=== PATIENT | male | born 1955 | race Caucasian/White ===

== ENCOUNTER 2018-08-29 09:06 | Inpatient (IN) | payer OTHER ==
[2018-08-29] MEDS ORDERED: BUPIVACAINE/EPI 0.5% 30 ML SDV ONE (09:27)
[2018-08-29] MEDS ORDERED: THROMBIN (BOVINE) 5,000 UNIT VIAL TP ONE (09:28)
[2018-08-29] MEDS ORDERED: LR 1,000 ML IV ONE (09:42)
[2018-08-29] MEDS ORDERED: PROPOFOL/EMULSION 500 MG/50 ML BOTTLE IV ONE ×2 (10:09→11:51)
[2018-08-29] MEDS ORDERED: fentaNYL 250 MCG/5 ML INJ ONE (10:09)
[2018-08-29] MEDS ORDERED: Propylene Glycol/Peg 400 [Systane Gel Eye Drops] 1 DROP EACHEYE PRN (10:21)
[2018-08-29] MEDS ORDERED: NAPROXEN SODIUM 220 MG TAB PO PRN (10:21)
--- NOTE | 2018-08-29 10:21 | PDHPUP ---
History & Physical Update H&P update statement: This history and physical update is based on an assessment of the patient which was completed after admission or registration (within 24 hours), but prior to the surgery/procedure. H&P update: H&P reviewed & patient examined, no change in patient's condition since H&P completed
[2018-08-29 10:26] LABS: PLATELET COUNT 270 10^3/uL (150-400)
--- NOTE | 2018-08-29 11:15 | PDANEPAE ---
ANE History of Present Illness 63 year old male for left CEA. 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 History of hypertension. ANE Past Medical History - Cardiovascular History Hx Hypertension: Yes Hx Arrhythmias: No Hx Chest Pain: No Hx Coronary Artery / Peripheral Vascular Disease: No Hx CHF / Valvular Disease: No Hx Palpitations: No Cardiovascular History Comment: pcp monitors bp medications - Pulmonary History Hx COPD: No Hx Asthma/Reactive Airway Disease: No Hx Recent Upper Respiratory Infection: No Hx Oxygen in Use at Home: No Hx Sleep Apnea: No Sleep Apnea Screening Result - Last Documented: Positive Pulmonary History Comment: NENA triggers - Neurologic History Hx Cerebrovascular Accident: No Hx Seizures: No Hx Dementia: No Neurologic History Comment: 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 left knee surgery ANE Review of Systems Review of systems is: negative Review of Systems: - Exercise capacity METS (RN): 4 METS ANE Patient History - Allergies Allergies/Adverse Reactions: No Known Allergies Allergy (Verified 08/27/18 10:52) - Home Medications Home Medications: Aspirin [Aspirin 325 mg (*)] 325 mg PO DAILY 08/26/18 [Last Taken 08/27/18] Herbals/Supplements -Info Only 1 ea PO DAILY 08/26/18 [Last Taken 08/27/18] Lisinopril/Hctz 20/12.5MG [Zestoretic/Prinzide 20/12.5MG (*)] 1 ea PO DAILY [Last Taken 1 Day Ago ~08/28/18] Mineral Oil/Petrolatum,White [Systane Nighttime Eye Oint] 1 gm EACHEYE HS [Last Taken 08/29/18] Naproxen Sodium [Aleve 220 MG (*)] 220 mg PO DAILY PRN 08/26/18 [Last Taken ] [place]-3 Fatty Acids [Fish Oil 1000 mg (*)] 1,000 mg PO BID 08/26/18 [Last Taken 08/27/18] Propylene Glycol/Peg 400 [Systane Gel Eye Drops] 1 drop EACHEYE QID PRN [Last Taken 08/29/18] amLODIPine BESYLATE [Norvasc 10 mg (*)] 10 mg PO DAILY 08/26/18 [Last Taken ] cycloSPORINE 0.05% [Restasis Opht Drops(*)] 1 drop EACHEYE BID 08/26/18 [Last Taken 08/29/18] - NPO status NPO Since - Liquids (Date): 08/29/18 NPO Since - Liquids (Time): 06:30 NPO Since - Solids (Date): 08/28/18 NPO Since - Solids (Time): 21:00 - Smoking Hx Smoking Status: Former smoker - Family Anes Hx Family Hx Anesthesia Complications: none ANE Labs/Vital Signs - Labs Result Diagrams: 08/29/18 10:00 08/29/18 10:00 - Vital Signs Height: 175.26 cm Weight: 86.183 kg ANE Physical Exam - Airway Neck exam: FROM Mallampati Score: Class 2 Mouth exam: normal dental/mouth exam - Pulmonary Pulmonary: no respiratory distress - Cardiovascular Cardiovascular: regular rate and rhythym - ASA Status ASA Status: III ANE Anesthesia Plan Anesthesia Plan: general endotracheal anesthesia
[2018-08-29] MEDS ORDERED: LABETALOL HCL 5 MG/ML 20 ML MDV IVP PRN (12:25)
[2018-08-29] MEDS ORDERED: ONDANSETRON 4 MG/2 ML VIAL IVP PRN ×2 (12:25→12:56)
[2018-08-29] MEDS ORDERED: PHENYLEPHRINE HCL 100 MCG/ML SYR IVP PRN (12:25)
[2018-08-29] MEDS ORDERED: fentaNYL 100 MCG/2 ML INJ IVP PRN (12:25)
[2018-08-29] MEDS ORDERED: oxyCODONE IR 5 MG TAB PO PRN (12:25)
[2018-08-29] MEDS ORDERED: DEXAMETHASONE 4 MG/ML VIAL IVP PRN (12:25)
[2018-08-29] MEDS ORDERED: LR 500 ML IV PRN (12:25)
[2018-08-29] MEDS ORDERED: HYDROmorphONE/DILAUDID 1 MG/ML INJ IVP PRN (12:25)
[2018-08-29] MEDS ORDERED: PROMETHAZINE HCL 25 MG/ML INJ IVP PRN (12:25)
[2018-08-29] MEDS ORDERED: NALOXONE HCL 0.4 MG/ML INJ IVP PRN (12:25)
[2018-08-29] MEDS ORDERED: ZOLPIDEM TARTRATE 5 MG TAB PO PRN (12:56)
[2018-08-29] MEDS ORDERED: HYDROCODONE/APAP 5/325 TAB PO PRN (12:56)
--- NOTE | 2018-08-29 12:56 | POSTOPPROG ---
Post Op Note Date of Operation: 08/29/18 Surgeon: Yuval Shankar Application Programmer Analyst: Jim Ceballos Anesthesiologist: Misty Schaefer Anesthesia: GET(General Endotracheal) Pre-op Diagnosis: Symptomatic left carotid stenosis Post-op Diagnosis: Same Procedure: Left eversion carotid endarterectomy Findings: Liquifying, friable, cheesy plaque Inf/Abcess present in the surg proc area at time of surgery?: No EBL: Minimal Complications: no immediate Specimen(s): plaque
--- NOTE | 2018-08-29 13:07 | POSTANESTH ---
Post Anesthetic Evaluation Cardiovascular Status: Normal, Stable Respiratory Status: Normal, Stable Level of Consciousness/Mental Status: Can Participate in Eval Pain Control: Adequate, Prn Tx Ordered Nausea/Vomiting Control: Adequate, Prn Tx Ordered Complications Possibly Related to Anesthesia: None Noted
--- NOTE | 2018-08-29 13:34 | GOP ---
[f rep st] OPERATIVE REPORT DATE OF OPERATION: 08/29/2018 SURGEON: Yuval Shankar MD OIL WELL CABLE TOOL DRILLER: Jim Ceballos MD ANESTHESIA: General. ANESTHESIOLOGIST: Misty Schaefer MD PREOPERATIVE DIAGNOSIS: Symptomatic left carotid stenosis. POSTOPERATIVE DIAGNOSIS: Symptomatic left carotid stenosis. PROCEDURE PERFORMED: Left eversion carotid endarterectomy. FINDINGS: See below. INDICATIONS: 63-year-old male with symptomatic left high-grade carotid stenosis. He is undergoing a carotid endarterectomy at this time. Risks and benefits were explained to him of bleeding, infection, nerve injury, stroke, recurrent stenosis, untoward cardiovascular effects, as well as others. All questions were answered. He desires to proceed. DESCRIPTION OF PROCEDURE: General anesthesia was induced. The carotid bifurcation was identified using ultrasonography sitting low within the neck. Local anesthetic was infiltrated along the anterior border of the sternocleidomastoid muscle. A transverse incision was created within skin lines. The platysma muscle was divided. The posterior auricular nerve was identified and preserved. The anterior border of the sternocleidomastoid muscle was dissected out. The facial vein was circumferentially encompassed and divided between clamps and ties. The carotid bifurcation was dissected out. Vessel loops were passed around the common, internal, and external carotid arteries. There was a very focal hard atheromatous plaque noted at the level of the bulb. The common carotid artery appeared soft and smooth, as was the distal internal carotid artery. A loop was passed around the superior thyroid artery as well. Heparin bolus was administered. Occluding clamps were applied. The artery was further dissected preserving the vagus nerve, as well as the hypoglossal nerve. An arteriotomy was created through the bulb of the artery. Using Butler scissors, the internal carotid artery was transected away from the common carotid artery. An eversion endarterectomy was completed, allowing for a nice smooth tapering endpoint. All loose fronds were individually retrieved. Backbleeding showed excellent flow coming from the intracranial circulation. The endarterectomy was completed through the external , as well as the common carotid arteries. The internal carotid artery was reattached to the common carotid artery with 2 competing 6-0 Prolene sutures. The artery was fore-bled and back-bled prior to and opened through the external carotid artery prior to reestablishing intracranial circulation through the internal. Excellent hemostasis was noted. Doppler interrogation disclosed nonobstructive signals throughout the common and internal carotid systems. The neck was closed in layers with absorbable sutures followed by Dermabond. The patient was extubated in the operating room, moving all 4 extremities, and taken to recovery uneventfully. /[id number]/MODL MTDD
--- NOTE | 2018-08-29 14:07 | PDMN ---
Medical Necessity Medical necessity: Pt meets inpt criteria per MD order and [facility] S-300, Carotid Endarterectomy, MCR IP only list, 63 y/o w/symptomatic 90% stenosis of L ICA w/ unstable plaque admitted for L eversion CEA and post-op care. PMHx includes HTN , HLD, and former smoker.
[2018-08-29] MEDS: ACETAMINOPHEN 325 MG TAB PO PRN ×2 (14:50→22:29)
[2018-08-29] MEDS: KETOROLAC 15 MG/1 ML SDV IVP SCH ×2 (18:40→23:57)
[2018-08-29] MEDS ORDERED: PETROLATUM EACHEYE SCH (21:00)
[2018-08-29] MEDS ORDERED: MINERAL OIL EACHEYE SCH (21:00)
[2018-08-29] MEDS ORDERED: cycloSPORINE 0.05% 30 DROPERETTE/BOX EACHEYE SCH (21:00)
[2018-08-29] MEDS ORDERED: [UNRECOGNIZED DRUG - OTHER] EACHEYE SCH (21:00)
--- NOTE | 2018-08-29 22:07 | SOAPPROG ---
SOAP Progress Note Assessment/Plan: Assessment:post op check. doing well. no pain. numbness throughout neck and ear. afebrile. bp 140-160. comfortable, up in chair. neck soft, flat. neuro intact other than MMN paresis. no issues. anticipated DC in am. Plan: 08/29/18 22:05 Objective: Vital Signs Temp Pulse Resp BP Pulse Ox 36.3 C 101 H 16 143/89 H 91 L 08/29/18 19:05 08/29/18 19:05 08/29/18 19:05 08/29/18 19:05 08/29/18 19:05 Laboratory Results 08/29/18 10:00 08/29/18 10:00 08/28/18 08/29/18 08/30/18 05:59 05:59 05:59 Intake Total 2100 Output Total 203 Balance 1897 ICD10 Worksheet Patient Problems: Problems Problem Status Onset Carotid stenosis, left Acute - ICD10 Problem Qualifiers (1) Carotid stenosis, left
[2018-08-29] MEDS: OMEGA-3 FATTY ACIDS 1,000 MG CAP PO SCH ×2 (22:11→22:12)
[2018-08-30 05:30] VITALS: BP 160/98
[2018-08-30] MEDS: KETOROLAC 15 MG/1 ML SDV IVP SCH (05:34)
[2018-08-30] MEDS ORDERED: LISINOPRIL/HCTZ 20/12.5MG 1 EA TAB ONE (05:52)
[2018-08-30] MEDS ORDERED: ASPIRIN 325 MG TAB ONE (05:52)
[2018-08-30] MEDS: OMEGA-3 FATTY ACIDS 1,000 MG CAP PO SCH (05:54)
--- NOTE | 2018-08-30 06:54 | SOAPPROG ---
SOAP Progress Note Assessment/Plan: Assessment:no c/o. no pain. no neuro concerns. no cp or sob. ready to go home ! numbness throughout neck and ear resolved. afebrile. bp 160/09 (prior to am bp meds). comfortable, up in chair. neck soft, min induration. neuro intact - resolved MMN paresis. no issues. home today am. dc instructions explained. Plan: 08/29/18 22:05 08/30/18 06:52 Objective: Vital Signs Temp Pulse Resp BP Pulse Ox 36.6 C 89 16 160/98 H 91 L 08/30/18 04:00 08/30/18 04:00 08/30/18 04:00 08/30/18 04:00 08/30/18 04:00 Laboratory Results 08/29/18 10:00 08/29/18 10:00 08/29/18 08/30/18 08/31/18 05:59 05:59 05:59 Intake Total 2100 Output Total 203 Balance 1897 ICD10 Worksheet Patient Problems: Problems Problem Status Onset Carotid stenosis, left Acute - ICD10 Problem Qualifiers (1) Carotid stenosis, left
--- NOTE | 2018-08-30 07:01 | GDS ---
[f rep st] DISCHARGE SUMMARY REASON FOR ADMISSION: Symptomatic left carotid stenosis. HOSPITAL COURSE: 63-year-old male with symptomatic left carotid stenosis. He underwent an uncomplicated left carotid endarterectomy. He had a benign postoperative course. He was discharged home the following morning in excellent condition, neurologically intact. Postoperative blood pressure was consistent with his prior numbers ranging from 130s to 160s. He was actively working with his primary care team to this end prior to admission. He was given prescriptions for [place] as needed for discomfort. He was recommended to use Tylenol or ibuprofen preferentially. He will be seen in followup by Dr. Shankar in 1-2 weeks. Full activity instructions were explained prior to leaving. He was to resume all other pre-hospital medications. Copy requested to: Ronnell Toscano MD /[id number]/MODL MTDD
[2018-08-30] MEDS ORDERED: ASPIRIN 325 MG TAB PO SCH (09:00)
[2018-08-30] MEDS ORDERED: LISINOPRIL/HCTZ 20/12.5MG 1 EA TAB PO SCH (09:00)
== END 2018-08-30 08:27 | disposition home or self-care (01) | DRG 39 ==
LOC: F3N 09:06 → F3E 14:02
PROVIDERS: ADMIT Surgery; ATTEND Surgery
PROC: 03CJ0ZZ Extirpation of Matter from Left Common Carotid Artery, Open Approach (ICD-10-PCS; principal; 2018-08-29 10:45)
DX: I65.22 Occlusion and stenosis of left carotid artery (principal); I10 Essential (primary) hypertension; G47.33 Obstructive sleep apnea (adult) (pediatric); E78.5 Hyperlipidemia, unspecified; Z85.828 Personal history of other malignant neoplasm of skin
CPT/HCPCS: J1644; J2704; J3010